=== PATIENT | female | born 1985 | race Caucasian/White ===

== ENCOUNTER 2018-11-27 05:33 | Day surgery (SDC) | payer OTHER ==
[2018-11-27 06:31] LABS: ADD MAN DIFF? NO
[2018-11-27 06:36] LABS: BASOPHIL # 0.1 10^3/ul (0.0-0.1); BASOPHILS % 0.5 % (0.0-2.0); EOSINOPHILS # 0.2 10^3/ul (0.0-0.5); EOSINOPHILS % 2.3 % (0.0-7.0); HEMATOCRIT 38.4 % (37.0-47.0); HEMOGLOBIN 12.4 g/dl (12.0-16.0); LYMPHOCYTES # 3.2 10^3/ul (0.8-2.9); LYMPHOCYTES % 32.8 % (15.0-51.0); MEAN CORPUSCULAR HEMOGLOBIN 29.6 pg (29.0-33.0); MEAN CORPUSCULAR HGB CONC 32.3 g/dl (32.0-37.0); MEAN CORPUSCULAR VOLUME 91.6 fl (82.0-101.0); MONOCYTE # 0.8 10^3/ul (0.3-0.9); MONOCYTES % 7.8 % (0.0-11.0); NEUTROPHIL # 5.5 10^3/ul (1.6-7.5); NEUTROPHILS % 56.2 % (39.0-77.0); PLATELET COUNT 294 10^3/UL (140-415); RED BLOOD COUNT 4.19 10^6/ul (4.20-5.40); RED CELL DISTRIBUTION WIDTH 13.4 % (11.5-14.5)
[2018-11-27 06:36] LABS: WHITE BLOOD COUNT 9.8 10^3/ul (4.8-10.8)
[2018-11-27 06:55] LABS: INR 0.94; PROTIME 12.7 Sec (11.9-14.9)
[2018-11-27 06:57] LABS: ALANINE AMINOTRANSFERASE 23 IU/L (13-69); ALBUMIN 4.1 g/dl (3.3-4.9); ALKALINE PHOSPHATASE 95 IU/L (42-121); ANION GAP 13 (5-13); ASPARTATE AMINO TRANSFERASE 23 IU/L (15-46); BILIRUBIN,INDIRECT 0.1 mg/dl (0-1.1); BILIRUBIN,TOTAL 0.1 mg/dl (0.2-1.3); BLOOD UREA NITROGEN 14 mg/dl (7-20); CALCIUM 9.1 mg/dl (8.4-10.2); CARBON DIOXIDE 24 mmol/L (21-31); CHLORIDE 107 mmol/L (97-110); CREATININE 0.75 mg/dl (0.44-1.00); Estimated GFR > 60 mL/min (>60); GLUCOSE 91 mg/dl (70-220); POTASSIUM 3.9 mmol/L (3.5-5.1); SODIUM 144 mmol/L (135-144); TOTAL PROTEIN 7.5 g/dl (6.1-8.1)
[2018-11-27] MEDS ORDERED: BUPIVACAINE 0.5%/EPI (SDV) 30 ML INJ (06:59)
[2018-11-27] MEDS ORDERED: GLYCOPYRROLATE 0.4 MG INJ (07:00)
[2018-11-27] MEDS ORDERED: DESFLURANE 15 MIN (07:00)
[2018-11-27] MEDS ORDERED: FENTAnyl 50 MCG/ML VIAL IV ×3 (07:30)
[2018-11-27] MEDS ORDERED: MIDAZOLAM 1 MG/ML 2 ML INJ IV (07:30)
[2018-11-27] MEDS ORDERED: hydrALAzine 20 MG INJ IV (07:30)
[2018-11-27] MEDS ORDERED: TRIMETHOBENZAMIDE 100 MG/ML VIAL IM (07:30)
[2018-11-27] MEDS ORDERED: EPHEDrine SULFATE 50 MG/5 ML SYG IV (07:30)
[2018-11-27] MEDS ORDERED: LABETALOL HCL 20MG INJ IV (07:30)
[2018-11-27] MEDS ORDERED: HYDROmorphONE 1 MG/5 ML IV SYRINGE IV (07:30)
[2018-11-27] MEDS ORDERED: ALBUTEROL 0.083% (NEB) 2.5 MG/3 ML AMP HHN (07:30)
[2018-11-27] MEDS ORDERED: DIPHENHYDRAMINE 50 MG INJ IV (07:30)
[2018-11-27] MEDS ORDERED: OXYCODONE/ACETAMINOPHEN (5/325) TAB PO (07:30)
[2018-11-27] MEDS ORDERED: IPRATROPIUM (NEB) 0.5 MG/2.5 ML AMP HHN (07:30)
[2018-11-27] MEDS ORDERED: CEFAZOLIN 1 GM INJ (07:33)
[2018-11-27] MEDS ORDERED: NEOSTIGMINE 3 MG/3 ML SYRINGE (07:33)
[2018-11-27] MEDS ORDERED: FENTAnyl 50 MCG/ML VIAL (07:33)
[2018-11-27] MEDS ORDERED: MIDAZOLAM 1 MG/ML 2 ML INJ (07:33)
[2018-11-27] MEDS ORDERED: PROPOFOL 20 ML (07:33)
[2018-11-27] MEDS ORDERED: ROCURONIUM 50 MG INJ (07:33)
[2018-11-27] MEDS ORDERED: ONDANSETRON 4 MG INJ (07:34)
[2018-11-27] MEDS ORDERED: DEXAMETHASONE 4 MG/ML 5 ML INJ (07:36)
[2018-11-27] MEDS: BUPIVACAINE 0.5%/EPI (SDV) 30 ML INJ INJ ×2 (08:21)
[2018-11-27] MEDS ORDERED: METOCLOPRAMIDE 10 MG INJ (08:37)
[2018-11-27] MEDS: HYDROmorphONE 1 MG/5 ML IV SYRINGE IV ×2 (09:00→09:06)
[2018-11-27] MEDS: MEPERIDINE 25 MG INJ IV (09:01)
[2018-11-27] MEDS: ONDANSETRON 4 MG INJ IV (09:01)
[2018-11-27] MEDS: OXYCODONE/ACETAMINOPHEN (5/325) TAB PO (10:08)
== END 2018-11-27 10:50 | disposition home or self-care (01) ==
LOC: SDS 05:33
DX: Z30.2 Encounter for sterilization (principal)
CPT/HCPCS: 58670; 80053; 85025; 85610; 85730